=== PATIENT | male | born 1955 ===

== ENCOUNTER 2019-07-16 09:15 | Outpatient (CLI) | payer OTHER | END 2019-07-16 09:21 | disposition home or self-care (01) | LOC: LAB 09:15 | DX: N32.1 Vesicointestinal fistula (principal); K57.32 Diverticulitis of large intestine without perforation or abscess without bleeding ==

== ENCOUNTER → 2019-07-17 | Outpatient (CLI) | payer OTHER | END | disposition home or self-care (01) | LOC: TOM 07:15 | DX: N32.1 Vesicointestinal fistula (principal); K57.32 Diverticulitis of large intestine without perforation or abscess without bleeding; Z86.010 Personal history of colon polyps; K59.09 Other constipation | CPT/HCPCS: 74178; Q9965 ==

== ENCOUNTER 2019-07-23 08:01 | Day surgery (SDC) | payer OTHER | END 2019-07-23 12:11 | disposition home or self-care (01) | LOC: AMB-ENDOS 08:01 | DX: D12.3 Benign neoplasm of transverse colon (principal); D12.4 Benign neoplasm of descending colon; K57.30 Diverticulosis of large intestine without perforation or abscess without bleeding ==